=== PATIENT | female | born 1950 | race Caucasian/White ===

== ENCOUNTER → 2017-07-29 | Outpatient (CLI) | payer MEDICARE ==
[~2017-07-29] MED LIST: ACYC400; ATEN50 PO; FLUT44OIA; Omeprazole20 M1 PO; ZESTORETIC 20-121 EA
== END | disposition home or self-care (01) ==
LOC: LAB SHORT 07:58 → PLD 07:58
DX: L72.0 Epidermal cyst (principal)
CPT/HCPCS: 88304

== ENCOUNTER 2018-05-28 08:32 | Day surgery (SDC) | payer MEDICARE ==
[~2018-05-28] VITALS: Ht 165.1 cm; Wt 73.5 kg
[~2018-05-28 08:32] MED LIST changes: -ACYC400; +ACYC400 PO; +ATOR20 PO; +CIME400 PO; +K-Dur20 MEQ PO; -ZESTORETIC 20-121 EA; +ZESTORETIC 20-121 EA PO
[2018-05-28] MEDS ORDERED: ESTER-C 1,0001 EACH PO (09:04)
[2018-05-28] MEDS ORDERED: PROBIOTIC1 EAC1 PO (09:04)
[2018-05-28] MEDS ORDERED: ALLEGRA ALLERG180 MG PO (09:04)
[2018-05-28] MEDS ORDERED: CENTRUM MULTI150 MCG PO (09:05)
[2018-05-28] MEDS ORDERED: Super B-50 Com1 EACH PO (09:05)
[2018-05-28] MEDS ORDERED: CALCIUM-MAGNES1 EACH PO (09:06)
[2018-05-28] MEDS ORDERED: Lysine1000 MG PO (09:07)
== END 2018-05-28 10:10 | disposition home or self-care (01) ==
LOC: ORSCSDS 08:32
PROVIDERS: Internal Medicine Gastroenterology
PROC: 0DB68ZX Excision of Stomach, Via Natural or Artificial Opening Endoscopic, Diagnostic (ICD-10-PCS; principal; 2018-05-28 09:45)
PROC: 0DB58ZX Excision of Esophagus, Via Natural or Artificial Opening Endoscopic, Diagnostic (ICD-10-PCS; principal; 2018-05-28 09:45)
DX: K21.9 Gastro-esophageal reflux disease without esophagitis (principal); I10 Essential (primary) hypertension; E78.00 Pure hypercholesterolemia, unspecified; K44.9 Diaphragmatic hernia without obstruction or gangrene; E87.6 Hypokalemia; Z79.899 Other long term (current) drug therapy
CPT/HCPCS: 88305; 88342; J7120

== ENCOUNTER 2019-02-28 13:17 | Emergency (ER) | payer MEDICARE ==
[~2019-02-28] VITALS: Ht 165.1 cm; Wt 70.3 kg
[~2019-02-28 13:17] MED LIST changes: +ALLEGRA ALLERG180 MG PO; +BLACK ELDERBERRY PO; +CALCIUM-MAGNES1 EACH PO; +CENTRUM MULTI150 MCG PO; +ESTER-C 1,0001 EACH PO; +Lysine1000 MG PO; +POTCHL20ER PO; +PROBIOTIC1 EAC1 PO; +Super B-50 Com1 EACH PO; +VITAMIN D31000 UNI1 PO
[2019-02-28 14:01] LABS: BASOPHILS ABSOLUTE AUTO 0.04 K/mm3 (0.00-0.23); BASOPHILS PERCENT AUTO 0 % (0-2); EOSINOPHILS ABSOLUTE AUTO 0.03 K/mm3 (0.00-0.68); EOSINOPHILS PERCENT AUTO 0 % (0-6); Hematocrit 39.8 % (33.0-51.0); Hemoglobin 13.2 g/dL (11.5-16.0); IMMATURE GRAN ABSOLUTE AUTO 0.02 K/mm3 (0.00-0.10); IMMATURE GRAN PERCENT AUTO 0 % (0-1); LYMPHOCYTES PERCENT AUTO 8 % (21-46); MONOCYTES ABSOLUTE AUTO 0.66 K/mm3 (0.16-1.47); MONOCYTES PERCENT AUTO 7 % (4-13); Mean Corpuscular HGB 30.6 pg (26.0-34.0); Mean Corpuscular HGB Conc 33.2 g/dL (31.5-36.5); Mean Corpuscular Volume 92 fL (80-100); Mean Platelet Volume 10.1 fL (9.1-12.4); NEUTROPHILS ABSOLUTE AUTO 8.13 K/mm3 (1.96-9.15); NEUTROPHILS PERCENT AUTO 84 % (41-73); Platelet Count 291 K/mm3 (150-400); RDW Coefficient Variation 12.5 % (11.7-14.2); Red Blood Cell Count 4.31 M/mm3 (3.80-5.20); White Blood Cell Count 9.68 K/mm3 (4.00-11.30)
[2019-02-28 14:15] LABS: Source, Urine Clean Catch
[2019-02-28 14:17] LABS: Bilirubin, Urine Neg (Neg); Blood, Urine 3+ (Neg); Glucose Qualitative, Urine Neg (Neg); Ketones, Urine Neg (Neg); Leukocyte Esterase, Urine Neg (Neg); Nitrite, Urine Neg (Neg); Protein, Urine Neg (Neg); Urobilinogen, Urine NORM (Normal)
[2019-02-28 14:17] LABS: Alanine Aminotransfer (ALT/SGP 29 U/L (12-78); Albumin, Blood 3.8 g/dL (3.4-5.0); Albumin/Globulin Ratio 1.1 (0.8-1.8); Alk Phos 76 U/L (50-136); Anion Gap 8 mmol/L (6-16); Aspartate Aminotrans (AST/SGOT 21 U/L (12-37); Bilirubin, Total 0.4 mg/dL (0.1-1.0); Blood Urea Nitrogen 9 mg/dL (8-24); Bun/Creatinine Ratio 11.8 (12.0-20.0); CO2, Blood 29 mmol/L (21-32); Calcium, Blood 9.4 mg/dL (8.5-10.1); Chloride, Blood 98 mmol/L (98-108); Creatinine, Blood 0.76 mg/dL (0.40-1.00); Globulin, Blood 3.4 g/dL (2.2-4.0); Glomerular Filtration Rate >60 (60-); Glucose, Blood 107 mg/dL (70-99); Potassium, Blood 3.1 mmol/L (3.5-5.5); Sodium, Blood 135 mmol/L (136-145); Total Protein, Blood 7.2 g/dL (6.4-8.2)
[2019-02-28 14:34] LABS: Appearance, Urine Clear (Clear); Color, Urine Yellow (P-Yellow)
[2019-02-28 14:35] LABS: Bacteria Few /hpf; Red Blood Cells, Urine 0-2 /hpf (0-2); Squamous Epithelial Cells Rare /hpf (Few); White Blood Cells, Urine Not Seen /hpf (0-5)
== END 2019-02-28 17:44 | disposition home or self-care (01) ==
LOC: ER 13:17
PROVIDERS: Physician Assistant
DX: R10.31 Right lower quadrant pain (principal); E87.6 Hypokalemia; K21.9 Gastro-esophageal reflux disease without esophagitis; Z88.8 Allergy status to other drugs, medicaments and biological substances; Z79.899 Other long term (current) drug therapy
CPT/HCPCS: 36415; 74177; 80053; 81001; 83690; 85025; 99284-25; Q9967

== ENCOUNTER 2019-05-25 12:41 | Day surgery (SDC) | payer MEDICARE ==
[~2019-05-25] VITALS: Ht 165.1 cm; Wt 73.3 kg
--- NOTE | 2019-05-25 14:14 | NUR ---
Ambulatory in Day Surgery History, Chart, Medications and Allergies reviewed before start of procedure.Lungs clear T/O to Auscultation. Patient confirms NPO status and agrees with scheduled surgery.
--- NOTE | 2019-05-25 14:37 | NUR ---
ASSUMED CARE AND RECEIVED REPORT FROM YI Reynolds RN. DR MARROQUIN JUST FINISHING WITH PATIENT.
--- NOTE | 2019-05-25 18:09 | NUR ---
SHIFT SUMMARY PT ARRIVED FROM PACU TO SURGICAL FLOOR AT 1800 TODAY VIA [facility] S/P L. TKA. L KNEE GRZEGORZ WRAP C/D/I WITH NOT DRAINAGE NOTED, HAS POLAR PACK IN PLACE. DENIES PAIN, CP, SOB, OR N/V. ABLE TO WIGGLE TOES/FINGERS. HAS SENSATION TO HIP ONLY AT THIS TIME. TOLERATING CRACKERS AND CL. IS A/O WITH VSS. S/O ATTENTIVE AT BEDSIDE. WILL CONT. TO MONITOR AND GIVE REPORT TO ONCOMING RN.
--- NOTE | 2019-05-26 04:02 | NUR ---
SHIFT SUMMARY: PT POD#0 FOR LT TKA. DRESSING CDI WITH POLAR PACK IN PLACE. LLE WITH GOOD CAP REFILL AND STRONG PULSE. DENIES N/T. PAIN MANAGED WITH 5MG OXY AND SCHED TORADOL AND TYLENOL. RATING PAIN 2/10 ON PAIN SCALE. OUT OF BED SEVERAL TIMES TO BATHROOM WITH ONE ASSIST AND FWW. SMITHA ACTIVITY WELL. VOIDING. SMITHA PO AND DENIES N/V. PLAN FOR DC TODAY.
[2019-05-26 05:48] LABS: BASOPHILS ABSOLUTE AUTO 0.01 K/mm3 (0.00-0.23); BASOPHILS PERCENT AUTO 0 % (0-2); EOSINOPHILS PERCENT AUTO 0 % (0-6); Hematocrit 31.1 % (33.0-51.0); Hemoglobin 10.1 g/dL (11.5-16.0); IMMATURE GRAN ABSOLUTE AUTO 0.04 K/mm3 (0.00-0.10); IMMATURE GRAN PERCENT AUTO 0 % (0-1); LYMPHOCYTES ABSOLUTE AUTO 0.55 K/mm3 (0.84-5.20); LYMPHOCYTES PERCENT AUTO 4 % (21-46); MONOCYTES ABSOLUTE AUTO 0.87 K/mm3 (0.16-1.47); MONOCYTES PERCENT AUTO 7 % (4-13); Mean Corpuscular HGB 30.3 pg (26.0-34.0); Mean Corpuscular HGB Conc 32.5 g/dL (31.5-36.5); Mean Corpuscular Volume 93 fL (80-100); Mean Platelet Volume 10.7 fL (9.1-12.4); NEUTROPHILS ABSOLUTE AUTO 11.21 K/mm3 (1.96-9.15); NEUTROPHILS PERCENT AUTO 88 % (41-73); Platelet Count 225 K/mm3 (150-400); RDW Coefficient Variation 12.4 % (11.7-14.2); RDW Standard Deviation 42.3 fL (35.1-46.3); Red Blood Cell Count 3.33 M/mm3 (3.80-5.20); White Blood Cell Count 12.68 K/mm3 (4.00-11.30)
[2019-05-26 06:09] LABS: Magnesium, Blood 1.6 mg/dL (1.6-2.4)
[2019-05-26 06:15] LABS: Anion Gap 6 mmol/L (6-16); Blood Urea Nitrogen 22 mg/dL (8-24); Bun/Creatinine Ratio 26.3 (12.0-20.0); CO2, Blood 29 mmol/L (21-32); Calcium, Blood 8.4 mg/dL (8.5-10.1); Chloride, Blood 100 mmol/L (98-108); Creatinine, Blood 0.84 mg/dL (0.40-1.00); Glomerular Filtration Rate >60 (60-); Glucose, Blood 132 mg/dL (70-99); Potassium, Blood 3.7 mmol/L (3.5-5.5); Sodium, Blood 135 mmol/L (136-145)
--- NOTE | 2019-05-26 09:48 | NUR ---
05/26/19 0948 Radhika Little VERIFICATIONS: EDIT CHART.
--- NOTE | 2019-05-26 14:30 | NUR ---
PATIENT D/C'D HOME WITH SPOUSE AT THIS TIME. PATIENT STATES UNDERSTANDING OF MEDS, WOUND CARE, ACTIVITY, OP PT, F/U APPT, ETC. TOLERATING PO. PATIENT STATES PAIN CONTROLLED WITH PO PAIN MED. VOIDING. NO ACUTE CHANGES OR C/O AT THIS TIME.
== END 2019-05-26 15:05 | disposition home or self-care (01) ==
LOC: ORSCMMR 12:41 → ORD 14:15 → SURS 17:26 → ORSCMMR 05-26 15:05 → SURS 05-26 15:05
PROVIDERS: Orthopaedic Surgery
PROC: 0SRD0J9 Replacement of Left Knee Joint with Synthetic Substitute, Cemented, Open Approach (ICD-10-PCS; principal; 2019-05-25 14:15)
PROC: 8E0YXBZ Computer Assisted Procedure of Lower Extremity (ICD-10-PCS; principal; 2019-05-25 14:15)
DX: M17.12 Unilateral primary osteoarthritis, left knee (principal); I10 Essential (primary) hypertension; K21.9 Gastro-esophageal reflux disease without esophagitis; Z79.899 Other long term (current) drug therapy
CPT/HCPCS: 36415; 73560-LT; 80048; 83735; 85025; 88300; 97110; 97116; 97162; C1713; C1776; J0171; J0690; J0735; J1885; J2250; J2405; J2795; J7120

== ENCOUNTER 2020-07-04 08:58 | Day surgery (SDC) | payer MEDICARE ==
[~2020-07-04] VITALS: Ht 165.1 cm; Wt 73.1 kg
[~2020-07-04 08:58] MED LIST changes: +VALACYCLOVIR500 MG PO; +[UNRECOGNIZED DRUG - REMARK] PO; +[UNRECOGNIZED DRUG - REMARK] PO
--- NOTE | 2020-07-04 14:00 | NUR ---
PT ARRIVED TO UNIT ON OWN BED, A/O X 4, PLEASANT/COOPERATIVE, DENIES N/V, DENIES PAIN, HAS RECEIVED SPINAL ANESTHESIA. PT IS ORIENTED TO ROOM/CALL LIGHT, PROVIDED WITH PO INTAKE/FLUIDS. POST OP VS COMMENCED AND STABLE. OPERATIVE SITE WITH CRYOTHERAPY, GRZEGORZ WRAP, C/D/I. PT IS ABLE TO WIGGLE TOES, GOOD CAP REFILL, WARM/PINK FEET.
--- NOTE | 2020-07-04 15:58 | NUR ---
PT WORKING WITH PATIENT
--- NOTE | 2020-07-04 17:21 | NUR ---
shift summary: post op vss, no acute changes, remained a/o x 4, pleasant/cooperative, has worked with PT, is up in chair, tolerated PO intake, rates pain at 3-4/10, denies n/v; R knee surgical site remained c/d/i with bulky dress; pt has voided.
[2020-07-05 05:07] LABS: BASOPHILS ABSOLUTE AUTO 0.02 K/mm3 (0.00-0.23); BASOPHILS PERCENT AUTO 0 % (0-2); EOSINOPHILS PERCENT AUTO 0 % (0-6); Hematocrit 34.3 % (33.0-51.0); Hemoglobin 11.4 g/dL (11.5-16.0); IMMATURE GRAN ABSOLUTE AUTO 0.08 K/mm3 (0.00-0.10); IMMATURE GRAN PERCENT AUTO 1 % (0-1); LYMPHOCYTES ABSOLUTE AUTO 0.74 K/mm3 (0.84-5.20); LYMPHOCYTES PERCENT AUTO 6 % (21-46); MONOCYTES ABSOLUTE AUTO 0.99 K/mm3 (0.16-1.47); MONOCYTES PERCENT AUTO 8 % (4-13); Mean Corpuscular HGB 31.8 pg (26.0-34.0); Mean Corpuscular HGB Conc 33.2 g/dL (31.5-36.5); Mean Corpuscular Volume 96 fL (80-100); Mean Platelet Volume 10.6 fL (9.1-12.4); NEUTROPHILS ABSOLUTE AUTO 11.38 K/mm3 (1.96-9.15); NEUTROPHILS PERCENT AUTO 86 % (41-73); Platelet Count 245 K/mm3 (150-400); RDW Coefficient Variation 12.9 % (11.7-14.2); RDW Standard Deviation 45.5 fL (35.1-46.3); Red Blood Cell Count 3.58 M/mm3 (3.80-5.20); White Blood Cell Count 13.21 K/mm3 (4.00-11.30)
[2020-07-05 05:41] LABS: Anion Gap 7 mmol/L (6-16); Blood Urea Nitrogen 17 mg/dL (8-24); Bun/Creatinine Ratio 22.4 (12.0-20.0); CO2, Blood 31 mmol/L (21-32); Calcium, Blood 8.8 mg/dL (8.5-10.1); Chloride, Blood 101 mmol/L (98-108); Creatinine, Blood 0.76 mg/dL (0.40-1.00); Glomerular Filtration Rate >60 (60-); Glucose, Blood 124 mg/dL (70-99); Magnesium, Blood 1.7 mg/dL (1.6-2.4); Potassium, Blood 3.4 mmol/L (3.5-5.5); Sodium, Blood 139 mmol/L (136-145)
--- NOTE | 2020-07-05 07:05 | NUR ---
SHIFT SUMMARY LYING IN SEMI FOWLERS WITH EYES OPEN WITH TV ON. AAO X3, AGUIRRE FOLLOWS ALL COMMANDS. PLEASANT AND COOPERATIVE WITH CARE. ABLE TO AMBULATE WITH STANDBY ASSIST, GB/FWW. RIGHT KMEE DRESSING C/D/I, AND POLAR KRUNAL IN PLACE. 18G PIV IS PATENT, FLUSHING WITH EASE. TOLERATED DIET WELL. CRITICAL H&H CALLED IN BY LABMD GIVEN VALUES, 2UNITS PRBC'S ORDERED, WILL BE INFUSED. DENIES PAIN, DISCOMFORT, OR FURTHER NEEDS AT THIS TIME. SAFETY MEASURES IN PLACE. HAND OFF GIVE TO Sandra LUNA RN USING SBAR DURING BEDSIDE REPORT.
--- NOTE | 2020-07-05 07:09 | NUR ---
SHIFT SUMMARY LYING IN SEMI FOWLERS WITH EYES OPEN WITH TV ON. AAO X3, AGUIRRE FOLLOWS ALL COMMANDS. PLEASANT AND COOPERATIVE WITH CARE. ABLE TO AMBULATE WITH STANDBY ASSIST, GB/FWW. RIGHT KNEE DRESSING C/D/I, AND POLAR KRUNAL IN PLACE. 18G PIV IS PATENT, FLUSHING WITH EASE. TOLERATED DIET WELL. DENIES PAIN, DISCOMFORT, OR FURTHER NEEDS AT THIS TIME. SAFETY MEASURES IN PLACE. HAND OFF GIVE TO Sandra LUNA RN USING SBAR DURING BEDSIDE REPORT.
--- NOTE | 2020-07-05 09:15 | NUR ---
07/05/20 0915 Radhika Little VERIFICATIONS: EDIT CHART.
[2020-07-05] MEDS ORDERED: Aspir 8181 MG PO (11:04)
[2020-07-05] MEDS ORDERED: OXYC5 PO (11:06)
[2020-07-05] MEDS ORDERED: PROM25 PO (11:07)
--- NOTE | 2020-07-05 11:55 | NUR ---
DISCHARGE PT PROVIDED WITH WRITTEN AND VERBAL DISCHARGE INSTRUCTIONS; SHE REPORTED UNDERSTANDING. PAIN MANAGED AT TIME OF DISCHARGE. PT WAS ESCORTED OUT IN W/C. PT PROVIDED WITH CLEAN DRESSINGS. PT REPORTED SHE ALREADY HAD HER MEDICATION FOR PAIN AND HER ASA AT HOME. TEREZA CALLED TO [facility] PER PT. REQUEST.
== END 2020-07-05 11:50 | disposition home or self-care (01) ==
LOC: ORSCMMR 08:58 → ORD 10:45 → ORSCMMR 10:45 → SURS 13:46 → ORSCMMR 07-05 11:50 → SURS 07-05 11:50
PROVIDERS: Orthopaedic Surgery
PROC: 0SRC0J9 Replacement of Right Knee Joint with Synthetic Substitute, Cemented, Open Approach (ICD-10-PCS; principal; 2020-07-04 10:45)
PROC: 8E0YXBZ Computer Assisted Procedure of Lower Extremity (ICD-10-PCS; principal; 2020-07-04 10:45)
DX: M17.11 Unilateral primary osteoarthritis, right knee (principal); I10 Essential (primary) hypertension; K21.9 Gastro-esophageal reflux disease without esophagitis; Z79.899 Other long term (current) drug therapy
CPT/HCPCS: 36415; 73560-RT; 80048; 83735; 85025; 88300; 97110; 97116; 97162; A9270; C1713; C1776; J0171; J0690; J0735; J1100; J1885; J2250; J2370; J2405; J2550; J2704; J2795; J3010; J3370; J7120

== ENCOUNTER 2021-02-28 12:05 | Day surgery (SDC) | payer MEDICARE ==
[~2021-02-28] VITALS: Ht 165.1 cm; Wt 71.4 kg
[~2021-02-28 12:05] MED LIST changes: +Aspir 8181 MG PO; +OXYC5 PO; +PROM25 PO
--- NOTE | 2021-02-28 12:41 | NUR ---
INTO [facility] ADMISSION STARTED. History, Chart, Medications and Allergies reviewed before start of procedure. Patient confirms NPO status and agrees with scheduled surgery. Lungs clear T/O to Auscultation.
--- NOTE | 2021-02-28 13:50 | NUR ---
02/28/21 3782 Kayla Romeo History, Chart, Medications and Allergies reviewed before start of procedure. Patient confirms NPO status and agrees with scheduled surgery. 3-LEAD EKG REVIEWED WITH PHYSICIAN PRIOR TO START OF PROCEDURE. MONITOR INTACT WITH CONTINUOUS PULSE OXIMETRY AND INTERMITTENT BP. PATIENT DETERMINED TO BE ASA APPROPRIATE FOR PROPOFOL SEDATION PRIOR TO START OF PROCEDURE BY DR. GALLAGHER
--- NOTE | 2021-02-28 14:47 | NUR ---
Discharge instructions reviewed with patient. Patient verbalizes understanding. Copy given to patient to take home. Patient up to Ambulate independently. Gait steady. Discharged via wheelchair to private car for ride home.
== END 2021-02-28 22:52 | disposition home or self-care (01) ==
LOC: ORSCMMR 12:05 → ORD 13:30 → ORSCMMR 22:52
PROVIDERS: Surgery
PROC: 0DJD8ZZ Inspection of Lower Intestinal Tract, Via Natural or Artificial Opening Endoscopic (ICD-10-PCS; principal; 2021-02-28 13:30)
DX: Z12.11 Encounter for screening for malignant neoplasm of colon (principal); I10 Essential (primary) hypertension; E78.5 Hyperlipidemia, unspecified; Z79.82 Long term (current) use of aspirin; Z79.899 Other long term (current) drug therapy
CPT/HCPCS: J2704; J7120